=== PATIENT | male | born 2000 | race Caucasian/White ===

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

== ENCOUNTER 2023-11-25 20:33 | Emergency (ER) | payer SELFPAY ==
[~2023-11-25] VITALS: Ht 167.6 cm; Wt 133.8 kg
[~2023-11-25 20:33] MED LIST: BENZ100A PO
[2023-11-25 20:38] VITALS: BP 142/70
== END 2023-11-25 21:49 | disposition home or self-care (01) ==
LOC: ER 20:33
DX: U07.1 COVID-19 (principal)
CPT/HCPCS: 99283